=== PATIENT | female | born 1955 | race Caucasian/White ===

== ENCOUNTER 2020-07-21 08:51 | Day surgery (SDC) | payer OTHER ==
[~2020-07-21 08:51] MED LIST: CIPRO500 MG PO; FLAGYL500MG PO; INTESTINEX1 CAP PO; LEVSIN/SL0.125 MG PO; PROTONIX40 MG PO
== END 2020-07-21 12:30 | disposition home or self-care (01) ==
LOC: AMB-ENDOS 08:51
PROVIDERS: ATTEND Surgery
DX: K62.89 Other specified diseases of anus and rectum (principal); Z20.822 Contact with and (suspected) exposure to COVID-19